=== PATIENT | male | born 1960 | race Caucasian/White ===

== ENCOUNTER 2017-10-05 11:40 | Inpatient (IN) | payer SELFPAY ==
[~2017-10-05] VITALS: Ht 177.8 cm; Wt 89.8 kg
[2017-10-05] MEDS ORDERED: METO50TA19 PO ×2 (11:58→13:31)
[2017-10-05] MEDS ORDERED: LISI20TA29 PO ×2 (11:58→13:32)
[2017-10-05] MEDS ORDERED: FURO20TA19 PO ×2 (11:59→13:33)
--- NOTE | 2017-10-05 12:05 | ER Report ---
History and Physical Time Seen By MD: 11:53 Hx. of Stated Complaint: PTS BP MEDICATION WAS INCREASED TO TWICE A DAY RECENTLY AND HE HAS BEEN HAVING LOWER BP'S HOWEVER THAT HAS BEEN MAKING HIM FEEL LIGHTHEADED, DIZZY AND HE HAD A SYNCOPAL EPISODE TODAY APPROX. 15 MINUTES AGO. DDENIES HITTING HIS HEAD. HPI/ROS CHIEF COMPLAINT: Syncopal episodes HISTORY OF PRESENT ILLNESS: 57-year-old male patient presents to emergency room with complaint of having had syncopal episodes. Patient states that approximately a week ago he was ill. He states he stayed in bed for couple days. He states that during that time he does not have much of an appetite and drink very little and ate just soup. Patient states that when he started feeling better he noted that when he did get up that he would feel lightheaded and wobbly. Patient states he's not had any nausea, vomiting or diarrhea. Patient denies having any chest pain. Patient states he is noticed that when he stands up that is very lightheaded and will sometimes pass out and falling hitting his left knee or his left shoulder. Patient states that he did go to [facility] is to have his blood pressure checked. He states that he found it to be 102 over 60s, 104 over 60s and 155 over 80s. States when it was 155 systolic he felt pretty good. He states that he did talk to a nurse friend of his who felt that he was dehydrated, he drank a significant amount of fluid at that time and states he felt better for a few days. He states that over the last couple days does not have quite as much drink and today he fell was concerned. REVIEW OF SYSTEMS: Respiratory: No cough, no dyspnea. Cardiovascular: As noted above Gastrointestinal: No vomiting, no abdominal pain. Musculoskeletal: No back pain. Allergies: Coded Allergies: No Known Drug Allergies (Unverified , 10/05/17) Home Meds Reported Medications Hydrochlorothiazide (HYDROCHLOROTHIAZIDE) 12.5 Mg Capsule, 1 TAB PO QDAY, CAPSULE 10/05/17 Metformin Hcl (METFORMIN HCL) 500 Mg Tablet, 500 MG PO BID, TAB 10/05/17 Lisinopril (LISINOPRIL) 20 Mg Tablet, 20 MG PO BID, TAB 10/05/17 Metoprolol Succinate (METOPROLOL SUCCINATE) 50 Mg Tab.er.24h, 1 TAB PO BID, TAB 10/05/17 Discontinued Reported Medications Furosemide (LASIX) 20 Mg Tablet, PO Q8H, TAB 10/05/17 Metformin Hcl (METFORMIN HCL) 500 Mg Tablet, PO BID, TAB 10/05/17 Furosemide (LASIX) 20 Mg Tablet, 1 TAB PO DAILY, TAB 10/05/17 Metoprolol Succinate (METOPROLOL SUCCINATE) 50 Mg Tab.er.24h, 1 TAB PO BID, TAB 10/05/17 Lisinopril (LISINOPRIL) 20 Mg Tablet, PO BID, TAB 10/05/17 Past Medical/Surgical History Patient has a past medical history of hypertension, cataracts, diabetes, skin cancer. Patient has surgical history of cataract surgery, skin cancer removal. Reviewed Nurses Notes: Yes Constitutional Vital Sign - Last 24 Hours 10/05/17 10/05/17 10/05/17 10/05/17 11:40 11:44 11:45 11:55 Temp 97.6 Pulse ??? 90 105 Resp 18 13 B/P (MAP) 133/85 (101) Pulse Ox 96 96 O2 Delivery Room Air 10/05/17 10/05/17 10/05/17 10/05/17 12:00 12:10 12:18 12:20 Pulse 88 85 Resp 12 B/P (MAP) 125/88 (100) 120/77 (91) 120/77 (91) Pulse Ox 96 10/05/17 10/05/17 10/05/17 10/05/17 12:21 12:22 12:23 12:25 Pulse 87 95 Resp 34 B/P (MAP) 95/65 (75) 95/65 (75) 83/57 (66) Pulse Ox 95 10/05/17 10/05/17 12:25 12:55 Pulse 84 Resp 15 B/P (MAP) 84/57 (66) Pulse Ox 96 Physical Exam General Appearance: The patient is alert, has no immediate need for airway protection and no current signs of toxicity. Respiratory: Chest is non tender, lungs are clear to auscultation. Cardiac: regular rate and rhythm Gastrointestinal: Abdomen is soft and non tender, no masses, bowel sounds normal. Musculoskeletal: Neck: Neck is supple and non tender. Extremities have full range of motion and are non tender. Skin: No rashes or lesions. DIFFERENTIAL DIAGNOSIS: After history and physical exam differential diagnosis was considered for syncope including but not limited to vasovagal syncope, arrhythmia, dehydration, and blood loss. Medical Decision Making Data Points Result Diagram: 10/05/17 1209 10/05/17 1642 Laboratory Hematology Test 10/05/17 12:09 10/05/17 13:15 Red Blood Count 4.81 M/uL (4.00-5.60) Mean Corpuscular Volume 87.9 fL (80.0-96.0) Mean Corpuscular Hemoglobin 32.1 pg (26.0-33.0) Mean Corpuscular Hemoglobin Concent 36.6 g/dL (32.0-36.0) Red Cell Distribution Width 13.1 % (11.5-14.5) Mean Platelet Volume 7.0 fL (7.2-11.1) Neutrophils (%) (Auto) 59.4 % (39.4-72.5) Lymphocytes (%) (Auto) 23.4 % (17.6-49.6) Monocytes (%) (Auto) 12.9 % (4.1-12.4) Eosinophils (%) (Auto) 3.0 % (0.4-6.7) Basophils (%) (Auto) 1.3 % (0.3-1.4) Nucleated RBC Relative Count (auto) 0.1 /100WBC Neutrophils # (Auto) 3.9 K/uL (2.0-7.4) Lymphocytes # (Auto) 1.5 K/uL (1.3-3.6) Monocytes # (Auto) 0.8 K/uL (0.3-1.0) Eosinophils # (Auto) 0.2 K/uL (0.0-0.5) Basophils # (Auto) 0.1 K/uL (0.0-0.1) Nucleated RBC Absolute Count (auto) 0.01 K/uL Total Bilirubin 0.9 mg/dl (0.2-1.3) Aspartate Amino Transf (AST/SGOT) 35 U/L (0-35) Alanine Aminotransferase (ALT/SGPT) 44 U/L (0-56) Alkaline Phosphatase 60 U/L (0-126) Troponin I < 0.012 ng/ml Total Protein 7.4 g/dl (6.3-8.2) Albumin 4.5 g/dl (3.5-5.0) Urine Color Yellow Urine Clarity Slightly-cloudy Urine pH 5.0 pH (4.8-9.5) Urine Specific [place] 1.017 Urine Protein Negative mg/dL (NEGATIVE) Urine Glucose (UA) 50 mg/dL (NEGATIVE) Urine Ketones Negative mg/dL (NEGATIVE) Urine Blood Negative (NEGATIVE) Urine Nitrite Negative (NEGATIVE) Urine Bilirubin Negative (NEGATIVE) Urine Urobilinogen Negative mg/dL (0.2-1.9) Urine Leukocyte Esterase Negative (NEGATIVE) Urine RBC None /HPF (0-2/HPF) Urine WBC 4 /HPF (0-5/HPF) Urine Squamous Epithelial Cells Many /LPF (</=FEW) Urine Bacteria Negative /HPF (NONE-FEW) Urine Hyaline Casts Many /LPF (NONE-FEW) Urine Mucus None /HPF (NONE-FEW) Urine Osmolality 342 mosm/K (500-800) Urine Random Creatinine 246.5 mg/dl Urine Random Sodium 8 MEQ/L Urine Random Potassium 31.1 MEQ/L Chemistry Test 10/05/17 12:09 10/05/17 13:15 White Blood Count 6.5 k/uL (4.5-11.0) Red Blood Count 4.81 M/uL (4.00-5.60) Hemoglobin 15.5 g/dL (14.0-18.0) Hematocrit 42.3 % (42.0-52.0) Mean Corpuscular Volume 87.9 fL (80.0-96.0) Mean Corpuscular Hemoglobin 32.1 pg (26.0-33.0) Mean Corpuscular Hemoglobin Concent 36.6 g/dL (32.0-36.0) Red Cell Distribution Width 13.1 % (11.5-14.5) Platelet Count 387 K/uL (150-450) Mean Platelet Volume 7.0 fL (7.2-11.1) Neutrophils (%) (Auto) 59.4 % (39.4-72.5) Lymphocytes (%) (Auto) 23.4 % (17.6-49.6) Monocytes (%) (Auto) 12.9 % (4.1-12.4) Eosinophils (%) (Auto) 3.0 % (0.4-6.7) Basophils (%) (Auto) 1.3 % (0.3-1.4) Nucleated RBC Relative Count (auto) 0.1 /100WBC Neutrophils # (Auto) 3.9 K/uL (2.0-7.4) Lymphocytes # (Auto) 1.5 K/uL (1.3-3.6) Monocytes # (Auto) 0.8 K/uL (0.3-1.0) Eosinophils # (Auto) 0.2 K/uL (0.0-0.5) Basophils # (Auto) 0.1 K/uL (0.0-0.1) Nucleated RBC Absolute Count (auto) 0.01 K/uL Total Bilirubin 0.9 mg/dl (0.2-1.3) Aspartate Amino Transf (AST/SGOT) 35 U/L (0-35) Alanine Aminotransferase (ALT/SGPT) 44 U/L (0-56) Alkaline Phosphatase 60 U/L (0-126) Troponin I < 0.012 ng/ml Total Protein 7.4 g/dl (6.3-8.2) Albumin 4.5 g/dl (3.5-5.0) Urine Color Yellow Urine Clarity Slightly-cloudy Urine pH 5.0 pH (4.8-9.5) Urine Specific [place] 1.017 Urine Protein Negative mg/dL (NEGATIVE) Urine Glucose (UA) 50 mg/dL (NEGATIVE) Urine Ketones Negative mg/dL (NEGATIVE) Urine Blood Negative (NEGATIVE) Urine Nitrite Negative (NEGATIVE) Urine Bilirubin Negative (NEGATIVE) Urine Urobilinogen Negative mg/dL (0.2-1.9) Urine Leukocyte Esterase Negative (NEGATIVE) Urine RBC None /HPF (0-2/HPF) Urine WBC 4 /HPF (0-5/HPF) Urine Squamous Epithelial Cells Many /LPF (</=FEW) Urine Bacteria Negative /HPF (NONE-FEW) Urine Hyaline Casts Many /LPF (NONE-FEW) Urine Mucus None /HPF (NONE-FEW) Urine Osmolality 342 mosm/K (500-800) Urine Random Creatinine 246.5 mg/dl Urine Random Sodium 8 MEQ/L Urine Random Potassium 31.1 MEQ/L Urinalysis Test 10/05/17 13:15 Urine Color Yellow Urine Clarity Slightly-cloudy Urine pH 5.0 pH (4.8-9.5) Urine Specific [place] 1.017 Urine Protein Negative mg/dL (NEGATIVE) Urine Glucose (UA) 50 mg/dL (NEGATIVE) Urine Ketones Negative mg/dL (NEGATIVE) Urine Blood Negative (NEGATIVE) Urine Nitrite Negative (NEGATIVE) Urine Bilirubin Negative (NEGATIVE) Urine Urobilinogen Negative mg/dL (0.2-1.9) Urine Leukocyte Esterase Negative (NEGATIVE) Urine RBC None /HPF (0-2/HPF) Urine WBC 4 /HPF (0-5/HPF) Urine Squamous Epithelial Cells Many /LPF (</=FEW) Urine Bacteria Negative /HPF (NONE-FEW) Urine Hyaline Casts Many /LPF (NONE-FEW) Urine Mucus None /HPF (NONE-FEW) Urine Osmolality 342 mosm/K (500-800) Urine Random Creatinine 246.5 mg/dl Urine Random Sodium 8 MEQ/L Urine Random Potassium 31.1 MEQ/L EKG/Imaging EKG Interpretation 12 lead EKG: Rhythm: Sinus rhythm with occasional PVC [place]: normal QRS: Nonspecific intraventricular block ST segments: normal Imaging CHEST PA AND LAT Indication: fainting spells Comparison: None. Findings: Lungs: There is mild hyperinflation and flattening the diaphragms. The lungs are clear. Mediastinum/pulmonary vasculature: Heart size and pulmonary vasculature are normal. Bones/soft tissues: Normal. IMPRESSION: 1. Mild hyperinflation consistent with COPD. 2. Clear lungs. Report Dictated By: Kevin Haley at 10/05/2017 1:03 PM Report E-Signed By: Kevin Haley at 10/05/2017 1:04 PM ED Course/Re-evaluation ED Course Patient was admitted and examined, history and physical were obtained. Differential diagnoses were considered. On examination lungs are clear, heart is regular, patient states that he is having some falling. A CBC, CMP, EKG, chest x-ray, troponin, urinalysis were obtained. Patient did not have a white count, however his CMP showed that he had a sodium of 122. Troponin was negative , chest x-ray were negative and EKG showed a sinus rhythm with occasional PVCs. Patient did have positive orthostatic blood pressures. I discussed the findings with patient. I felt that it due to the low sodium the patient should likely be admitted. I believe that what happened is that he become dehydrated with being ill last week and has not rehydrated and has lost a considerable amount of sodium. That was contributing to the weakness the following. Patient did agree to be admitted to the hospital. I discussed the case with Dr. Lomeli, hospitalist, who agreed to accept the patient for admission. I discussed this with the patient who verbalized understanding and agreement plan. Decision to Disposition Date: Oct 05, 2017 Decision to Disposition Time: 13:23 Depart Departure Latest Vital Signs Vital Signs Date Time Temp Pulse Resp B/P (MAP) Pulse Ox O2 Delivery O2 Flow Rate FiO2 10/05/17 12:55 84 15 96 10/05/17 12:25 84/57 (66) 10/05/17 11:44 97.6 Room Air Impression: Primary Impression: Hyponatremia Additional Impression: Acute renal failure Condition: Condition Unchanged Disposition: Admitted from ER Problem Qualifiers Additional Impression: Acute renal failure Acute renal failure type: unspecified Qualified Codes: N17.9 - Acute kidney failure, unspecified HARISH MARIA Oct 05, 2017 12:05
[2017-10-05 12:24] LABS: PLATELET COUNT, AUTOMATED 387 K/uL (150-450)
[2017-10-05] MEDS ORDERED: NS(*) 0.9% 1000 ML BAG 1,000 ML IV ONE (12:30)
--- NOTE | 2017-10-05 13:09 | RADIOLOGY IMAGING REPORT ---
FACILITY: [facility] [place] PATIENT NAME: Maximilian Rainey : 1960 MR: [id number] V: [id number] EXAM DATE: ORDERING PHYSICIAN: HARISH MARIA TECHNOLOGIST: Location: [facility] [place] Patient: Maximilian Rainey : 1960 Visit/Account:[id number] Date of Sevice: 10/05/2017 CHEST PA AND LAT Indication: fainting spells Comparison: None. Findings: Lungs: There is mild hyperinflation and flattening the diaphragms. The lungs are clear. Mediastinum/pulmonary vasculature: Heart size and pulmonary vasculature are normal. Bones/soft tissues: Normal. IMPRESSION: 1. Mild hyperinflation consistent with COPD. 2. Clear lungs. Report Dictated By: Kevin Haley at 10/05/2017 1:03 PM Report E-Signed By: Kevin Haley at 10/05/2017 1:04 PM [id number]
--- NOTE | 2017-10-05 13:14 | EKG ---
FACILITY: [facility] PATIENT NAME: AMAIRANI JACOBS : [id number] MR: [id number] V: [id number] EXAM DATE: ORDERING PHYSICIAN: HARISH MARIA TECHNOLOGIST: BELA Test Reason : SYNCOPE Blood Pressure : / mmHG Vent. Rate : 093 BPM Atrial Rate : 093 BPM P-R Int : 206 ms QRS Dur : 132 ms QT Int : 374 ms P-R-T Axes : 066 -48 063 degrees QTc Int : 465 ms Sinus rhythm with occasional premature ventricular complexes Nonspecific intraventricular block Cannot rule out Anteroseptal infarct , age undetermined Abnormal ECG No previous ECGs available Confirmed by Emery Willams ([id number]) on 10/05/2017 5:26:02 PM Referred By: JOEL Confirmed By:Emery Hansen
[2017-10-05] MEDS ORDERED: METF-411 PO ×2 (13:28→13:32)
[2017-10-05 13:44] VITALS: BP 156/97
[2017-10-05] MEDS ORDERED: HYDR12.556 PO (13:58)
[2017-10-05] MEDS ORDERED: ACETAMINOPHEN 325 MG TAB PO PRN (14:00)
[2017-10-05] MEDS ORDERED: INFLUENZA VIRUS VAC 0.5 ML SYR IM ONLY ONE (14:00)
[2017-10-05] MEDS ORDERED: ONDANSETRON 4 MG/2 ML VIAL IVP PRN (14:00)
--- NOTE | 2017-10-05 14:54 | History & Physical ---
History of Present Illness Chief Complaint Syncope History of Present Illness 57M presented after near syncopal episode this am. Reports illness about one week ago with n/v and minimal PO intake for 2-3 days. Appetite has been decreased since that time but he thought might be dehydrated and was taking in increased volume of water. Elevated Cr noted on labs in ER also, denies any previous problems with kidneys. Urine has been darker on and off since getting sick. PMHx significant for HTN, DM, and GE reflux. Takes metoprolol, lisinopril , Lasix (HCTZ?), metformin, OTC acid reflux medication. History Problems: (1) HTN (hypertension) (2) Acid reflux (3) Diabetes Home Meds Reported Medications Hydrochlorothiazide (HYDROCHLOROTHIAZIDE) 12.5 Mg Capsule, 1 TAB PO QDAY, CAPSULE 10/05/17 Metformin Hcl (METFORMIN HCL) 500 Mg Tablet, 500 MG PO BID, TAB 10/05/17 Lisinopril (LISINOPRIL) 20 Mg Tablet, 20 MG PO BID, TAB 10/05/17 Metoprolol Succinate (METOPROLOL SUCCINATE) 50 Mg Tab.er.24h, 1 TAB PO BID, TAB 10/05/17 Discontinued Reported Medications Furosemide (LASIX) 20 Mg Tablet, PO Q8H, TAB 10/05/17 Metformin Hcl (METFORMIN HCL) 500 Mg Tablet, PO BID, TAB 10/05/17 Furosemide (LASIX) 20 Mg Tablet, 1 TAB PO DAILY, TAB 10/05/17 Metoprolol Succinate (METOPROLOL SUCCINATE) 50 Mg Tab.er.24h, 1 TAB PO BID, TAB 10/05/17 Lisinopril (LISINOPRIL) 20 Mg Tablet, PO BID, TAB 10/05/17 Allergies: Coded Allergies: No Known Drug Allergies (Unverified , 10/05/17) Patient History: FH: HTN (hypertension) Hx Smoking: No Caffeine Intake: Tea, Soda Caffeine/Cups Per Day: 4 Hx Alcohol Use: Yes (4-6 daily) Alcohol Used: Beer Hx Substance Use Disorder: No Review of Systems Constitutional: No Fever, No Weight Loss Neurological: Syncope, No Confusion, No Weakness Eyes: No Vision Change, No Loss of Vision ENT: No Hearing Loss, No Sinus Congestion Cardiovascular: No Chest Pain, No Palpitations Respiratory: No Shortness of Breath, No Cough Gastrointestinal: No Nausea, No Vomiting Genitourinary: No Dysuria Musculoskeletal: No Pain Psychiatric: No Depression Exam Vital Signs Vital Signs Date Time Temp Pulse Resp B/P (MAP) Pulse Ox O2 Delivery O2 Flow Rate FiO2 10/05/17 13:59 95 Room Air 10/05/17 13:44 97.6 78 16 156/97 (116) General Appearance: Alert, Awake, No Acute Distress Neuro: No Gross deficits Eyes: PERRLA ENT: Normal (mild dryness of mucous membranes) Neck: No Masses Cardiovascular: Normal Rhythm & Peripheral Pulses Respiratory: No Respiratory Distress Chest: No Tenderness GI: Abd Soft and Non-Tender Lymph: Cervical Nodes Benign Musculoskeletal: No Weakness/Pain Extremities: Soft and Non Tender, Warm, Pulses, Perfused, No Edema Integumentary: Skin Intact without Lesion / Mass Psych: Alert & Oriented X3 Medical Decision Making Data Points Result Diagram: 10/05/17 1209 10/05/17 1209 EKG / Imaging Monitor Interpretation: Normal Sinus Rhythm Assessment and Plan Problems: (1) Hyponatremia Status: Acute Assessment & Plan: Appears hypovolemic hyponatremia. Decreased PO intake over last 10 days, also significant EtOH consumption at 4-6 beers daily. Likely worsening of chronic hyponatremia. Target 8 mmol increase in 24 hours. (2) Acute renal failure Status: Acute Assessment & Plan: No previous Hx kidney disease. Will monitor with hydration. (3) Diabetes Assessment & Plan: On low dose metformin outpt, will hold and monitor with daily labs. If hyperglycemia significant will begin Accuchecks and SSI. (4) HTN (hypertension) Assessment & Plan: On metoprolol, lisinopril, HCTZ (Lasix?). Will continue metoprolol, reports cough which may be associated with AUTUMN, holding at this time will start ARB before discharge and stop AUTUMN. Will clarify diuretic patient is taking. Venous Thromboembolism Antithrombotics Is Pt On Any Antithrombotics?: No Exam Sepsis Risk: No Definite Risk Problem Qualifiers (1) Acute renal failure: Acute renal failure type: unspecified Qualified Codes: N17.9 - Acute kidney failure, unspecified ESA WESTBROOKCONRADO DO Oct 05, 2017 14:54
[2017-10-05] MEDS: NS(*) 0.9% 1000 ML BAG 1,000 ML IV PRN (17:32)
[2017-10-05 17:36] VITALS: BP 154/97
[2017-10-05 20:46] VITALS: BP 153/89
[2017-10-05 22:28] VITALS: BP 143/78
[2017-10-06 02:59] VITALS: BP 138/89
[2017-10-06] MEDS: NS(*) 0.9% 1000 ML BAG 1,000 ML IV PRN (03:38)
[2017-10-06] MEDS ORDERED: NS(*) 0.9% 1000 ML BAG 1,000 ML IV PRN (06:16)
[2017-10-06 07:45] VITALS: BP 152/96
[2017-10-06] MEDS ORDERED: METO-253 PO (07:58)
[2017-10-06] MEDS ORDERED: INSULIN HUM LISPRO 100 UN/ML 3 ML VIAL SUBQ PRN (08:25)
[2017-10-06] MEDS: METOPROLOL TART 50 MG TAB PO SCH ×2 (08:41→20:29)
[2017-10-06 09:17] VITALS: Ht 177.8 cm; Wt 89.8 kg
[2017-10-06] MEDS ORDERED: DIAZEPAM 10 MG TAB PO PRN ×2 (09:55)
--- NOTE | 2017-10-06 09:58 | Hospitalist Progress Note ---
Subjective Progress Notes Subjective He reports much improvement in symptoms. He states he was able to eat breakfast this morning. Patient Complains of: Cardiovascular: No: Chest Pain Respiratory: No: Shortness of Breath Physical Exam Vital Signs Date Time Temp Pulse Resp B/P (MAP) Pulse Ox O2 Delivery O2 Flow Rate FiO2 10/06/17 07:45 97.8 78 20 152/96 (114) 20 Room Air Intake and Output 10/07/17 07:00 Intake Total 340 ml Balance 340 ml Intake Oral 340 ml General Appearance: Alert, Awake, No Acute Distress, Afebrile Neuro: No Gross deficits Cardiovascular: Regular Rate and Rhythm Respiratory: No Respiratory Distress, Clear to Auscultation GI: Soft and Non-Tender Psych: Alert & Oriented X3, Appropriate Mood & Affect Result Diagram: 10/05/17 1209 10/06/17 0502 Monitor Interpretation: Normal Sinus Rhythm Assessment and Plan Problems: (1) Hyponatremia Status: Acute Assessment & Plan: Appears hypovolemic hyponatremia. Decreased PO intake over last 10 days, also significant EtOH consumption at 4-8 beers daily. Likely worsening of chronic hyponatremia. Sodium 130 this morning. We will recheck BMP at 1300. (2) Acute renal failure Status: Acute Assessment & Plan: No previous Hx kidney disease. Will monitor with hydration. Creatinine improved to 1.0 this morning from 1.8 upon admission. (3) Diabetes Assessment & Plan: On low dose metformin outpt, will hold and monitor with daily labs. He will be started on AC/HS blood glucose monitoring and SSI #2, since his oral intake has improved. (4) HTN (hypertension) Assessment & Plan: On metoprolol, lisinopril, HCTZ. Will continue metoprolol, reports cough which may be associated with AUTUMN, holding at this time. Stop Lisinopril. We will start ARB before discharge if needed. (5) Alcohol abuse Status: Chronic Assessment & Plan: He drinks approximately 4-8 beers daily. He will be placed on CIWA assessments and Valium is ordered for patient if needed. Exam Sepsis Risk: No Definite Risk Problem Qualifiers (1) Acute renal failure: Acute renal failure type: unspecified Qualified Codes: N17.9 - Acute kidney failure, unspecified MAURILIO GUADALUPE [facility] Oct 06, 2017 09:58
[2017-10-06] MEDS ORDERED: FOLIC ACID 1 MG TAB PO SCH (09:59)
[2017-10-06] MEDS ORDERED: THIAMINE HCL 100 MG TAB PO SCH (09:59)
[2017-10-06] MEDS ORDERED: MAGNESIUM SUL* 2 GM/50 ML IVPB 50 ML IVPB ONE (10:00)
[2017-10-06 11:01] VITALS: BP 122/93
[2017-10-06 15:01] VITALS: BP 173/96
[2017-10-06 20:30] VITALS: BP 183/96
[2017-10-07 03:20] VITALS: BP 180/105
[2017-10-07 07:35] VITALS: BP 192/120
[2017-10-07] MEDS ORDERED: LOSA50TA72 PO (08:27)
[2017-10-07] MEDS ORDERED: metFORMIN HCL 500 MG TAB PO SCH (09:00)
[2017-10-07] MEDS ORDERED: LOSARTAN POTASSIUM 50 MG TAB PO SCH (09:00)
[2017-10-07] MEDS ORDERED: FOLIC ACID 1 MG TAB PO SCH (09:00)
[2017-10-07] MEDS ORDERED: THIAMINE HCL 100 MG TAB PO SCH (09:00)
[2017-10-07] MEDS: METOPROLOL TART 50 MG TAB PO SCH (09:25)
[2017-10-07 10:33] VITALS: BP 172/96
--- NOTE | 2017-10-07 10:33 | Hospitalist Depart ---
Discharge Summary Reason for Hosp/Final Diag: (1) Hyponatremia Status: Acute Hospital Course & Plan: Appears hypovolemic hyponatremia. Decreased PO intake over last 10 days, also significant EtOH consumption at 4-8 beers daily. Likely worsening of chronic hyponatremia. Sodium 133 this morning. His appetite has improved. (2) Acute renal failure Status: Acute Hospital Course & Plan: No previous Hx kidney disease. Creatinine improved to 0.9 this morning from 1.8 upon admission. (3) Diabetes Hospital Course & Plan: On low dose metformin. He will continue his usual dose. (4) HTN (hypertension) Hospital Course & Plan: On metoprolol, lisinopril, HCTZ. Will continue metoprolol, reports cough which may be associated with AUTUMN. Stop Lisinopril and Hydrochlorothiazide. He was started on Losartan. He will follow up with PCP in [place] upon returning home for follow up of blood pressure. (5) Alcohol abuse Status: Chronic Hospital Course & Plan: He drinks approximately 4-8 beers daily, but stopped drinking a few days prior to admission. He was encouraged to stop drinking to help sodium level. Departure Latest Vital Signs Vital Signs 10/07/17 07:35 Temp 97.8 Pulse 68 Resp 20 B/P (MAP) 192/120 (144) Pulse Ox 96 O2 Delivery Room Air Weight (Pounds): 198 Result Diagram: 10/05/17 1209 10/07/17 0521 Condition: Improved Discharge: Home, Self Care Discharge Instructions Home Meds Active Scripts Losartan Potassium (LOSARTAN POTASSIUM) 50 Mg Tablet, 50 MG PO QDAY, #30 TAB Prov:MAURILIO GUADALUPE [employer] 10/07/17 Reported Medications Metoprolol Tartrate (METOPROLOL TARTRATE) 50 Mg Tab, 1 TAB PO BID, TAB 10/06/17 Metformin Hcl (METFORMIN HCL) 500 Mg Tablet, 500 MG PO BID, TAB 10/05/17 Discontinued Reported Medications Hydrochlorothiazide (HYDROCHLOROTHIAZIDE) 12.5 Mg Capsule, 1 TAB PO QDAY, CAPSULE 10/05/17 Lisinopril (LISINOPRIL) 20 Mg Tablet, 20 MG PO BID, TAB 10/05/17 Metoprolol Succinate (METOPROLOL SUCCINATE) 50 Mg Tab.er.24h, 1 TAB PO BID, TAB 10/05/17 Furosemide (LASIX) 20 Mg Tablet, PO Q8H, TAB 10/05/17 Metformin Hcl (METFORMIN HCL) 500 Mg Tablet, PO BID, TAB 10/05/17 Furosemide (LASIX) 20 Mg Tablet, 1 TAB PO DAILY, TAB 10/05/17 Metoprolol Succinate (METOPROLOL SUCCINATE) 50 Mg Tab.er.24h, 1 TAB PO BID, TAB 10/05/17 Lisinopril (LISINOPRIL) 20 Mg Tablet, PO BID, TAB 10/05/17 Diet: Regular Activity: As Tolerated Special Instructions: Follow up with your primary care provider when you return home. Venous Thromboembolism Antithrombotics Is Pt On Any Antithrombotics?: No Problem Qualifiers (1) Acute renal failure: Acute renal failure type: unspecified Qualified Codes: N17.9 - Acute kidney failure, unspecified MAURILIO GUADALUPE [employer] Oct 07, 2017 10:33
== END 2017-10-07 11:07 | disposition home or self-care (01) | DRG 641 ==
LOC: ER 11:49 → MED 13:15
PROVIDERS: ADMIT Internal Medicine; ATTEND Internal Medicine
DX: E87.1 Hypo-osmolality and hyponatremia (principal); N17.9 Acute kidney failure, unspecified; E11.9 Type 2 diabetes mellitus without complications; I10 Essential (primary) hypertension; F10.10 Alcohol abuse, uncomplicated; I48.0 Paroxysmal atrial fibrillation; R55 Syncope and collapse; Z85.828 Personal history of other malignant neoplasm of skin; Z79.84 Long term (current) use of oral hypoglycemic drugs
CPT/HCPCS: 36415; 36416; 71046; 81001; 82040; 82247; 82310; 82374; 82435; 82565; 82570; 82947; 82948; 83735; 83930; 83935; 84075; 84132; 84133; 84155; 84295; 84300; 84443; 84450; 84460; 84484; 84520; 85025; 87088; 93005; 96360; 99283; J3475; J7030